=== PATIENT | male | born 1950 | race Caucasian/White ===

== ENCOUNTER 2019-07-13 18:29 | Emergency (ER) | payer OTHER, SELFPAY ==
[2019-07-13 18:29] VITALS: BP 124/65; PULSE 97; RESP 18; TEMP 36.8; O2SAT 95; BMI 24.5
--- NOTE | 2019-07-13 18:33 | ED.GENADULT ---
HPI - General Adult General Chief complaint: Trauma Stated complaint: GLF Time Seen by Provider: 07/13/19 18:30 Source: patient and EMS Mode of arrival: EMS Limitations: no limitations History of Present Illness HPI narrative: Patient is a 68-year-old male is brought in by EMS for a fall that he sustained just prior to arrival. He is with a friend. They do admit that he had been drinking. His friend states that the patient turned to show him something any tripped over his feet falling backwards and hitting his head on the ground. Patient's friend states that he thought the patient had lost consciousness for very short period of time. There then was a period of time with the patient seemed to be alert than EMS reported that he potentially lost consciousness again for short period of time. Initially it was reported that the patient was on blood thinners. Modified trauma was called secondary to this. The patient arrived when a cervical collar and on a backboard. Related Data Allergies Allergy/AdvReac Type Severity Reaction Status Date / Time meperidine [From Demerol] Allergy Verified 07/13/19 18:47 Review of Systems Review of Systems Narrative: From EMS, patient's friend, and patient Constitutional Constitutional: Denies fever(s), Denies frequent falls and Denies headache(s) Eyes Eyes: Denies blurry vision and Denies change in vision ENT Ears, Nose, Mouth, and Throat: Denies vertigo, Denies dizziness, Denies headache(s), Denies neck pain and Denies sore throat Cardiovascular Cardiovascular: Denies chest pain, Denies palpitations and Denies dyspnea Respiratory Respiratory: Denies dyspnea Gastrointestinal Gastrointestinal: Denies abdominal pain, Denies diarrhea and Denies nausea Musculoskeletal Musculoskeletal: Denies back pain, Denies myalgias, Denies arthralgias and Denies neck pain Integumentary/Breasts Comments: Blood from the back of the head and Neurologic Neurologic: Denies abnormal speech, Reports confusion, Denies vertigo, Denies dizziness, Denies frequent falls and Denies headache(s) Comments: Loss of consciousness Psychiatric Psychiatric: Reports confusion Endocrine Endocrine: Denies palpitations Hematologic/Lymphatic Hematologic/Lymphatic: Denies easy bleeding and Denies easy bruising Allergic/Immunologic Allergic/Immunologic: Denies urticaria [facility] Medical History Patient denies medical problems (Acute) Social History Smoking Status: Former smoker Social History Smoking Status: Former smoker Exam Initial Vital Signs Initial Vital Signs: Vital Signs Temperature 98.3 F 07/13/19 18:29 Pulse Rate 97 H 07/13/19 18:29 Respiratory Rate 18 07/13/19 18:29 Blood Pressure 124/65 07/13/19 18:29 Pulse Oximetry 95 07/13/19 18:29 Const General: cooperative, healthy appearing, well developed, well groomed and No acute distress Orientation: alert, awake, oriented to person, oriented to place and confused HENIL Head: other (For cm laceration to the left parietal aspect of the scalp) Nose: external nose normal Face and sinus: normal facial exam Mouth: oral mucosae normal Eyes Pupils: PERRL EOM: EOM intact bilaterally Chest Chest: normal inspection of the chest, No crepitus and No tenderness Resp Effort & Inspection: normal respiratory effort Auscultation: clear to auscultation bilaterally Cardio Rate: regular rate Rhythm: regular rhythm GI Inspection: non-distended Palpation: soft and No firm Back/Spine/Pelvis Cervical Spine: collar present and No cervical spinal tenderness Thoracic/Lumbar Spine: No thoracic spinal tenderness and No lumbar spinal tenderness Skin Other: Laceration to left parietal aspect the scalp otherwise no other abnormalities found on exam Neuro General: alert and awake Speech: speech normal Other: Patient was alert, oriented to person and place. Did know the year however took him a while to respond to this question. Patient with anterior grade amnesia. Asks the same questions over and over again. Does not remember the circumstances as to why he is here. Extrem General: normal to inspection and capillary refill normal Other: Pelvis stable. Patient able to move all 4 extremities without any pain. No abnormalities felt on exam Psych Appearance: grossly normal and well kempt Procedures Laceration Repair Laceration 1: Site: scalp Side (If applicable): left Size (cm): 4 Description: irregular Depth: simple, single layer Local Anesthetic: lidocaine 1% Amount of anesthesia used (mL): 5 Pre-repair: wound explored, irrigated extensively and deep structures intact Skin layer closed with: other (Seven marshal) Course Orders Ordered: ED Orders 07/13/19 18:20 Basic Metabolic Panel Stat Complete Blood Count AUTO DIFF Stat Ethanol (ETOH) Stat Partial Thromboplastin Time Stat Prothrombin Time INR Stat 07/13/19 18:32 CT cervical spine wo con Stat CT head/brain wo con Stat Vital Signs Vital signs: Vital Signs - 8 hr 07/13/19 18:29 07/13/19 20:49 Temperature 98.3 F Pulse Rate 97 H 90 Respiratory Rate 18 20 Blood Pressure 124/65 143/77 H Pulse Oximetry 95 96 Medical Decision Making Lab Data Lab results reviewed: Yes I reviewed the patient's lab results. Result diagrams: 07/13/19 18:20 07/13/19 18:20 Labs: Lab Results 07/13/19 07/13/19 07/13/19 Range/Units 18:20 18:20 18:20 WBC 11.0 (4.5-11.0) X10^3/uL RBC 4.45 L (4.5-5.9) X10^6/uL Hgb 14.5 (13.5-17.5) g/dL Hct 42.7 (41-53) % MCV 95.9 (80-100) fL MCH 32.5 (26-34) PG MCHC 33.8 (30-36) % RDW 12.5 (11.6-14.8) % Plt Count 229 (150-400) X10^3/uL Neut % (Auto) 59.0 (50-75) % Lymph % (Auto) 29.6 (25-40) % [place] % (Auto) 7.1 (3-14) % Eos % (Auto) 3.7 (2-4) % Baso % (Auto) 0.6 (0-2) % Neut # (Auto) 6500 (2929-7063) /uL Lymph # (Auto) 3300 (1948-2431) /uL [place] # (Auto) 800 (0-900) /uL Eos # (Auto) 400 (0-450) /uL Baso # (Auto) 100 (0-100) /uL PT 10.5 (10.1-12.7) SECONDS INR 0.9 (0.9-1.3) APTT 28 (26.4-36.2) SECONDS Sodium 137 (137-145) mmol/L Potassium 4.2 (3.4-5.1) mmol/L Chloride 98 (98-107) mmol/L Carbon Dioxide 23 (22-32) mmol/L BUN 22 H (9-20) mg/dL Creatinine 0.80 (0.66-1.25) mg/dL Estimated GFR > 60.0 (>60) mL/min BUN/Creatinine Ratio 27.5 H (6-22) Glucose 124 H (80-110) mg/dL Calcium 9.5 (8.4-10.2) mg/dL Ethyl Alcohol ( - 10) mg/dL 07/13/19 Range/Units 18:20 WBC (4.5-11.0) X10^3/uL RBC (4.5-5.9) X10^6/uL Hgb (13.5-17.5) g/dL Hct (41-53) % MCV (80-100) fL MCH (26-34) PG MCHC (30-36) % RDW (11.6-14.8) % Plt Count (150-400) X10^3/uL Neut % (Auto) (50-75) % Lymph % (Auto) (25-40) % [place] % (Auto) (3-14) % Eos % (Auto) (2-4) % Baso % (Auto) (0-2) % Neut # (Auto) (3247-6189) /uL Lymph # (Auto) (8143-5363) /uL [place] # (Auto) (0-900) /uL Eos # (Auto) (0-450) /uL Baso # (Auto) (0-100) /uL PT (10.1-12.7) SECONDS INR (0.9-1.3) APTT (26.4-36.2) SECONDS Sodium (137-145) mmol/L Potassium (3.4-5.1) mmol/L Chloride (98-107) mmol/L Carbon Dioxide (22-32) mmol/L BUN (9-20) mg/dL Creatinine (0.66-1.25) mg/dL Estimated GFR (>60) mL/min BUN/Creatinine Ratio (6-22) Glucose (80-110) mg/dL Calcium (8.4-10.2) mg/dL Ethyl Alcohol 190 H ( - 10) mg/dL Imaging Data CT cervical spine: Radiologist's impression: [address] [address] [address] Scan Report Signed Patient: Afshin Massey#: [id number] : 9Acct:[id number] Age/Sex: 68 / MDate of Service: 07/13/19 Loc: ED Accession Number: [id number] Procedure: CT cervical spine wo con Ordering Provider: Kishan Huggins D.O. PROCEDURE: CT CERVICAL SPINE WO CON INDICATIONS: Fall with LOC TECHNIQUE: Noncontrast 3 mm thick sections acquired from the skull base to the T4 level. Sagittal and coronal reformats were then constructed. For radiation dose reduction, the following was used: automated exposure control, adjustment of mA and/or kV according to patient size. COMPARISON: None. FINDINGS: Image quality: Excellent. Bones: No fractures or dislocations. Visualized superior ribs are intact. Moderate spondylitic change. Chronic disc height loss and anterior osteophytes at C4-C5 and C5-C6 and C6-C7. Disc bulges or protrusions at the above levels. Prominent right uncovertebral joint hypertrophy results in severe right foraminal narrowing at C4-C5 and C5-C6. There is severe left foraminal narrowing at C5-C6 and C6-C7. There is prominent right facet hypertrophy at C2-C3 and C3-C4. Soft tissues: Prevertebral soft tissues are normal in thickness. No paravertebral hematomas. No apical pneumothoraces. IMPRESSION: 1. No evidence acute cervical fracture or dislocation. 2. Cervical spondylitic change. Dictated by: Riky Canales M.D. on 07/13/2019 at 19:04 Approved by: Riky Canales M.D. on 07/13/2019 at 19:08 CT scan - head: Radiologist's impression: [address] [address] [address] Scan Report Signed Patient: Afshin Massey#: [id number] : 9Acct:[id number] Age/Sex: 68 / MDate of Service: 07/13/19 Loc: ED Accession Number: [id number] Procedure: CT head/brain wo con Ordering Provider: Kishan Huggins D.O. PROCEDURE: CT HEAD/BRAIN WO CON INDICATIONS: Fall with LOC TECHNIQUE: Noncontrast 4.5 mm thick angled axial sections acquired from the foramen magnum to the vertex, with coronal and sagittal reformats. For radiation dose reduction, the following was used: automated exposure control, adjustment of mA and/or kV according to patient size. COMPARISON: None. FINDINGS: Image quality: Excellent. CSF spaces: Basal cisterns are patent. No extra-axial fluid collections. The ventricles are symmetric in size and shape. Brain: No intracranial bleeds or masses. There is cerebral volume loss for age, with resultant ventricular and sulcal prominence. There are moderate periventricular and deep white matter chronic small vessel ischemic changes. Skull and face: Small subgaleal hematoma, left parietal region. Calvarium and visualized facial bones appear intact, without suspicious lesions. Sinuses: Patchy bilateral ethmoid disease. Left maxillary sinus mucoperiosteal thickening and mucus retention cyst. IMPRESSION: 1. Age related volume loss and moderate small vessel ischemic change. 2. No evidence acute stroke, hemorrhage, or mass. The 3. Left parietal subgaleal hematoma. 4. Chronic sinus disease. Dictated by: Riky Canales M.D. on 07/13/2019 at 19:01 Approved by: Riky Canales M.D. on 07/13/2019 at 19:04 [facility] Narrative Medical decision making narrative: Head CT and cervical spine CT unremarkable. His cervical collar was removed. The scalp laceration was closed as described above. Patient did have an elevated alcohol level. No other injuries were reported or found on his exam. On upon further questioning it was revealed that the patient's blood thinner was actually aspirin. He is here with a friend. He obviously has a concussion. Is having some anterograde amnesia issues. This is not uncommon in this situation. I did discuss this with the patient and his friend who is at bedside. His friend who is at bedside stated that he could watch the patient this evening. We discussed care instructions with regard to the marshal. We discussed return precautions. I did inform them that I do not recommend he did ride his motorcycle home tomorrow unless he awakes tomorrow in is completely back to normal. The patient and his friend expressed understanding of this. Will hold on further workup for now. Discharge Plan Departure Patient Disposition: Home Clinical Impression: Concussion Qualifiers: Encounter type: initial encounter Loss of consciousness presence/duration: with LOC of 30 min or less Qualified Code(s): S06.0X1A - Concussion with loss of consciousness of 30 minutes or less, initial encounter Laceration of scalp Qualifiers: Encounter type: initial encounter Qualified Code(s): S01.01XA - Laceration without foreign body of scalp, initial encounter Closed head injury Qualifiers: Encounter type: initial encounter Qualified Code(s): S09.90XA - Unspecified injury of head, initial encounter Fall Qualifiers: Encounter type: initial encounter Qualified Code(s): W19.XXXA - Unspecified fall, initial encounter Discharge Date/Time: 07/13/19 20:52 Instructions: DI for Concussion, Postconcussion Syndrome, DI for Laceration Repair -- Marshal, DI for Laceration Repair of the Scalp Activity Restrictions/Additional Instructions: You can shower like normal. You can use soap and water like normal. Be careful with combing your hair. The marshal do need to be removed in 7-10 days. Memory issues, nausea vomiting, dizziness, headaches, vision changes can be associated with concussions. I do recommend you contact your primary provider when you return home. Return to the emergency department for any new or worsening symptoms
[2019-07-13 18:41] LABS: Add Manual Diff / Slide Review NO; Basophils Absolute Auto 100 /uL (0-100); Basophils Percent Auto 0.6 % (0-2); Eosinophils Absolute Auto 400 /uL (0-450); Eosinophils Percent Auto 3.7 % (2-4); Hematocrit 42.7 % (41-53); Hemoglobin 14.5 g/dL (13.5-17.5); Lymphocytes Absolute Auto 3300 /uL (1100-4500); Lymphocytes Percent Auto 29.6 % (25-40); Mean Corpuscular HGB Conc 33.8 % (30-36); Mean Corpuscular Hemoglobin 32.5 PG (26-34); Mean Corpuscular Volume 95.9 fL (80-100); Monocytes Absolute Auto 800 /uL (0-900); Monocytes Percent Auto 7.1 % (3-14); Neutrophils Absolute Auto 6500 /uL (1500-7000); Platelet Count 229 X10^3/uL (150-400); Red Blood Cell Count 4.45 X10^6/uL (4.5-5.9); Red Cell Distribution Width 12.5 % (11.6-14.8)
[2019-07-13 18:51] LABS: INR 0.9 (0.9-1.3); Prothrombin Time 10.5 SECONDS (10.1-12.7)
[2019-07-13 18:53] LABS: PTT Partial Thromboplastin Tim 28 SECONDS (26.4-36.2)
[2019-07-13 18:55] LABS: BUN Creatinine Ratio 27.5 (6-22); Blood Urea Nitrogen 22 mg/dL (9-20); Calcium 9.5 mg/dL (8.4-10.2); Carbon Dioxide 23 mmol/L (22-32); Chloride 98 mmol/L (98-107); Estimated Glomerular Filt Rate > 60.0 mL/min (>60); Ethanol (ETOH) 190 mg/dL; Glucose 124 mg/dL (80-110); HEMOLYSIS < 15 (0-50); Potassium 4.2 mmol/L (3.4-5.1); Sodium 137 mmol/L (137-145)
--- NOTE | 2019-07-13 20:22 | PC.NURSE ---
clensed wound with normal saline irrigant and preped for staple placment. wound is 1 inch with unapproximated edges, provider used forcepts to pull edges together and placed 7 stiches.
[2019-07-13 20:49] VITALS: BP 143/77; PULSE 90; RESP 20; O2SAT 96
== END 2019-07-13 20:52 | disposition home or self-care (01) ==
PROVIDERS: Emergency Provider Emergency Medicine
DX: S06.0X1A Concussion with loss of consciousness of 30 minutes or less, initial encounter (principal); S01.01XA Laceration without foreign body of scalp, initial encounter; W19.XXXA Unspecified fall, initial encounter
CPT/HCPCS: 12002; 70450; 72125; 80048; 80320; 85025; 85610; 85730; 99283; 99284